=== PATIENT | male | born 1980 | race Caucasian/White ===

== ENCOUNTER 2017-09-08 21:19 | Emergency (ER) | payer SELFPAY ==
[~2017-09-08] VITALS: Ht 162.6 cm; Wt 65.9 kg
[~2017-09-08 21:19] MED LIST: NORCO 325 MG-51 TAB PO
[2017-09-08 21:23] VITALS: TEMP 99
[2017-09-08 22:12] LABS: COLLECTION METHOD CLEAN CATCH
[2017-09-08 22:17] LABS: MUCOUS Present /lpf; PH 5 (5-8); SQUAMOUS EPITHELIAL 0-2 /hpf; URINE APPEARANCE Clear; URINE BACTERIA None Seen /hpf; URINE BILIRUBIN Negative (NEGATIVE); URINE BLOOD Negative (NEGATIVE); URINE COLOR Yellow; URINE GLUCOSE Negative (NEGATIVE); URINE KETONE Negative (NEGATIVE); URINE LEUKOCYTE ESTERASE Negative (NEGATIVE); URINE PROTEIN(semi-quant) Negative (NEGATIVE); URINE RBC 0-2 /hpf; URINE WBC 0-2 /hpf
[2017-09-08 22:42] VITALS: BP 130/78
[2017-09-08] MEDS ORDERED: NORCO 325 MG-51 TAB PO (22:43)
[2017-09-08 23:13] VITALS: PULSE 85
== END 2017-09-08 23:13 | disposition home or self-care (01) ==
LOC: COL.ER 21:19
PROVIDERS: Nurse Practitioner
DX: R10.30 Lower abdominal pain, unspecified (principal); F17.210 Nicotine dependence, cigarettes, uncomplicated; Z98.890 Other specified postprocedural states; X50.0XXA Overexertion from strenuous movement or load, initial encounter
CPT/HCPCS: J1170

== ENCOUNTER 2018-09-22 10:23 | Emergency (ER) | payer SELFPAY ==
[~2018-09-22] VITALS: Ht 160 cm; Wt 68.2 kg
[2018-09-22 10:33] VITALS: BP 128/78; TEMP 98
[2018-09-22] MEDS ORDERED: ADVIL200 MG PO (10:46)
[2018-09-22] MEDS ORDERED: FLEXERIL 1010 MG/TAB PO (10:48)
[2018-09-22] MEDS ORDERED: PREDNISONE20 MG PO (10:48)
[2018-09-22 10:50] VITALS: PULSE 93
== END 2018-09-22 10:56 | disposition home or self-care (01) ==
LOC: COL.ER 10:23
DX: M54.5 Low back pain (principal); F17.210 Nicotine dependence, cigarettes, uncomplicated

== ENCOUNTER 2020-04-29 15:18 | Emergency (ER) | payer SELFPAY ==
[~2020-04-29] VITALS: Ht 160 cm; Wt 68.2 kg
[~2020-04-29 15:18] MED LIST changes: +ADVIL200 MG PO; +FLEXERIL 1010 MG/TAB PO; +PREDNISONE20 MG PO
[2020-04-29 15:35] VITALS: TEMP 98.3
[2020-04-29 16:10] LABS: BASO # 0.1 (0.0-0.2); BASO % 0.5 % (0.0-2.0); EOS # 0.1 (0.0-0.7); EOS % 0.7 % (0-4.0); GRAN # 6.8 (1.4-6.5); GRAN % 70.8 % (42.2-75.2); HEMATOCRIT 46.2 % (42.0-52.0); HEMOGLOBIN 15.6 g/dl (13.5-18.0); LYMPH # 1.8 (1.2-3.4); LYMPH % 18.9 % (20.0-51.0); MEAN CELL VOLUME 81 fl (80.0-100.0); MEAN CORPUSCULAR HEMOGLOBIN 27 pg (27.0-31.0); MEAN CORPUSCULAR HGB CONC 34 g/dl (33.0-37.0); MEAN PLATELET VOLUME 10.4 fl (7.4-10.4); MONO # 0.8 (0.1-0.6); MONO % 8.7 % (1.7-9.3); PLATELET COUNT 229 K/mm3 (130-400); RED BLOOD COUNT 5.74 M/mm3 (4.20-5.60); REDCELL DISTRIBUTION WIDTH-CV 15.7 % (11.5-14.5)
[2020-04-29 16:17] LABS: ALANINE AMINOTRANSFERASE 21 U/L (4-49); ALBUMIN 4.4 gm/dL (3.5-5.0); ALKALINE PHOSPHATASE 125 U/L (50-136); ANION GAP 6 mmol/L (7-16); AST,SGOT 25 U/L (15-37); BILIRUBIN,TOTAL 0.9 mg/dL (0.0-1.0); BLOOD UREA NITROGEN 13 mg/dL (9-20); CALCIUM 9.4 mg/dL (8.4-10.2); CARBON DIOXIDE 29 mmol/L (22-30); CHLORIDE 102 mmol/L (98-107); CREATININE, serum 0.82 (0.66-1.25); GLUCOSE 93 mg/dL (74-106); LIPASE 64 U/L (23-300); POTASSIUM 4.1 mmol/L (3.4-5.0); SODIUM 137 mmol/L (137-145); TOTAL PROTEIN 7.9 gm/dL (6.4-8.2)
[2020-04-29 16:19] LABS: C-REACTIVE PROTEIN < 0.5 mg/dL (0.0-0.9)
[2020-04-29 16:27] LABS: TROPONIN-I < 0.012 ng/mL (0.000-0.035)
[2020-04-29 19:15] VITALS: BP 132/90; PULSE 94
== END 2020-04-29 19:15 | disposition home or self-care (01) ==
LOC: COL.ER 15:18
PROVIDERS: Emergency Medicine
DX: R07.89 Other chest pain (principal); R06.02 Shortness of breath; Z20.828 Contact with and (suspected) exposure to other viral communicable diseases

== ENCOUNTER 2021-08-28 16:41 | Emergency (ER) | payer SELFPAY ==
[~2021-08-28] VITALS: Ht 160 cm; Wt 74.1 kg
[2021-08-28 16:56] VITALS: BP 166/74; TEMP 98
[2021-08-28] MEDS ORDERED: NORCO 325 MG-51 TAB PO (17:58)
[2021-08-28 18:37] VITALS: PULSE 75
== END 2021-08-28 18:37 | disposition home or self-care (01) ==
LOC: COL.ER 16:41
DX: T26.01XA Burn of right eyelid and periocular area, initial encounter (principal); F17.210 Nicotine dependence, cigarettes, uncomplicated; X12.XXXA Contact with other hot fluids, initial encounter; Y99.0 Civilian activity done for income or pay
CPT/HCPCS: J7030

== ENCOUNTER 2021-11-30 07:51 | Emergency (ER) | payer SELFPAY ==
[~2021-11-30] VITALS: Ht 162.6 cm; Wt 68.2 kg
[2021-11-30 08:06] VITALS: TEMP 98.2
[2021-11-30 09:10] VITALS: BP 135/72; PULSE 93
== END 2021-11-30 09:10 | disposition home or self-care (01) ==
LOC: COL.ER 07:51
DX: J20.9 Acute bronchitis, unspecified (principal); F17.210 Nicotine dependence, cigarettes, uncomplicated; Z20.822 Contact with and (suspected) exposure to COVID-19